=== PATIENT | male | born 1970 | race American Indian/Alaskan Native ===

== ENCOUNTER 2019-08-17 19:03 | Emergency (ER) | payer SELFPAY ==
--- NOTE | 2019-08-17 21:00 | Event Note ---
ED Screening Note Date of service: 08/17/19 Time: 20:54 ED Screening Note: Pt complains of dizziness x 4 days denies HAs, vision changes +DM2 This initial assessment/diagnostic orders/clinical plan/treatment(s) is/are subject to change based on patients health status, clinical progression and re- assessment by fellow clinical providers in the ED. Further treatment and workup at subsequent clinical providers discretion. Patient/guardian urged not to elope from the ED as their condition may be serious if not clinically assessed and managed. Initial orders include: labs EKG
[2019-08-17 21:39] LABS: Basophils # (Auto) 0.1 K/mm3 (0.0-0.1); Basophils % (Auto) 1.2 % (0.0-1.8); Eosinophils # (Auto) 0.1 K/mm3 (0.0-0.4); Eosinophils % (Auto) 2.1 % (0.0-4.3); Hematocrit 39.9 % (35.5-45.6); Hemoglobin 13.4 gm/dl (11.8-15.2); Mean Corpuscular HGB Conc 34 % (32-34); Mean Corpuscular Volume 92 fl (84-94); Monocytes # (Auto) 0.4 K/mm3 (0.0-0.8); Monocytes % (Auto) 7.7 % (0.0-7.3); Red Blood Count 4.32 M/mm3 (3.65-5.03); Red Cell Distribution Width 13.5 % (13.2-15.2)
[2019-08-17 21:52] LABS: Alanine Aminotransferase 10 units/L (7-56); Albumin 4.1 g/dL (3.9-5); BUN/Creatinine Ratio 10; Blood Urea Nitrogen 13 mg/dL (9-20); Calcium 9.4 mg/dL (8.4-10.2); Hemolysis Index 5
[2019-08-17 22:17] LABS: Platelet Count 159 K/mm3 (140-440)
[2019-08-17 22:44] LABS: Bacteria,Urine 1+ /HPF (Negative); Bilirubin,Urine NEG (Negative); Blood,Urine NEG (Negative); Color,Urine Colorless (Yellow); Mucus,Urine FEW /HPF; Protein,Urine <15 mg/dL mg/dL (Negative); Urobilinogen,Urine < 2.0 mg/dL (<2.0); WBC,Urine < 1.0 /HPF (0.0-6.0)
[2019-08-17] MEDS ORDERED: amLODIPine 5 MG TAB PO ONE (23:00)
[2019-08-17] MEDS ORDERED: ASPIRIN 325 MG TAB ONE (23:30)
[2019-08-17] MEDS ORDERED: ASPIRIN 325 MG TAB PO SCH (23:30)
[2019-08-17] MEDS ORDERED: SODIUM CHLORIDE 0.9% 1000 ML 1,000 ML IV ONE (23:33)
[2019-08-17] MEDS ORDERED: MECLIZINE 25 MG TAB PO ONE (23:33)
--- NOTE | 2019-08-18 00:04 | XRay Report ---
CHEST 2 VIEWS INDICATION / CLINICAL INFORMATION: Dizziness. COMPARISON: None available. FINDINGS: Marked tortuosity and ectasia of the thoracic aorta with unwinding of the arch on the lateral view. H eart size is normal. Lungs are clear. No apical capping. No pleural fluid or pneumothorax. No acute s keletal abnormality. Signer Name: Emiliano Krishna MD Signed: 08/17/2019 11:59 PM Workstation Name: [id number]
--- NOTE | 2019-08-18 00:33 | Cat Scan Report ---
Examination: CT of the head without contrast Clinical information: Altered mental status. Dizziness. Comparison: None Technical: Multiple axial CT images of the head were obtained without intravenous contrast. Sagittal and coronal reformats were obtained. All CTs at this facility utilize dose reduction techniques inc luding automated exposure control, iterative reconstruction and weight based dosing when appropriate to reduce patient radiation dose to as low as reasonable achievable. Findings: There is no CT evidence of acute intracranial hemorrhage or large territorial infarct. The ventricular system appears normal in size. No extra-axial fluid collections are identified. Evaluation of the calvarium demonstrates no evidence of acute bony abnormality. The visualized parana cale sinuses and mastoid air cells are clear. Impression: 1. No CT evidence of acute intracranial process. Signer Name: Maxine Sharma MD Signed: 08/18/2019 12:28 AM Workstation Name: [id number]
--- NOTE | 2019-08-18 02:27 | Emergency Department Report ---
ED Dizziness HPI - General Chief Complaint: Dizziness Stated Complaint: DIZZINESS Time Seen by Provider: 08/17/19 20:54 Source: patient Mode of arrival: Ambulatory Limitations: No Limitations - History of Present Illness Initial Comments: Patient is a 48-year-old -Malag[place] male with a history of chronic anxiety who presented to the ED with persistent lightheadedness with elevated blood pressure for 1 week. Patient states that at home his blood pressure is normal but when he comes to the hospitalist blood pressure usually goes a because of "w hitecoat anxiety syndrome". Patient states that he takes lisinopril 10 mg daily for hypertension but that he has not taken his blood pressure medications in 2 days. Patient denies chest pain, shortness of breath, nausea, vomiting, dizziness, cough, traumatic injury, headache, nausea, vomiting, fever, chills, cough, abdominal pain. MD Complaint: lightheadedness, other (elevated BP) -: Sudden, days(s) (2) Timing: intermittent, waxing/waning Description: sense of movement, lightheadedness History of Same: No History of Trauma: No Severity: moderate Improves With: nothing Worsens With: nothing Associated Symptoms: denies other symptoms. denies: ataxia, chest pain, confusion, cough, diaphoresis, fever/chills, loss of appetite, malaise, seizure, shortness of breath, syncope, weakness, other - Related Data Previous Rx's Medication Instructions Recorded Last Taken Type Meclizine [Antivert] 25 mg PO Q8H PRN #30 tablet 08/18/19 Unknown Rx amLODIPine 10 mg PO DAILY #30 tab 08/18/19 Unknown Rx hydrOXYzine PAMOATE [Vistaril] 50 mg PO Q6HR PRN #30 capsule 08/18/19 Unknown Rx Allergies Allergy/AdvReac Type Severity Reaction Status Date / Time No Known Allergies Allergy Verified 08/17/19 23:04 ED Review of Systems ROS: Stated complaint: DIZZINESS Other details as noted in HPI Constitutional: denies: chills, fever Eyes: denies: eye pain, eye discharge, vision change ENT: denies: ear pain, throat pain Respiratory: denies: cough, shortness of breath, wheezing Cardiovascular: denies: chest pain, palpitations Endocrine: no symptoms reported Gastrointestinal: denies: abdominal pain, nausea, diarrhea Genitourinary: denies: urgency, dysuria Musculoskeletal: denies: back pain, joint swelling, arthralgia Skin: denies: rash, lesions Neurological: vertigo, other (lightheadedness). denies: headache, weakness, paresthesias Psychiatric: anxiety. denies: depression Hematological/Lymphatic: denies: easy bleeding, easy bruising ED Past Medical Hx - Past Medical History Previous Medical History?: Yes Hx Diabetes: Yes - Surgical History Past Surgical History?: No - Social History Smoking Status: Never Smoker Substance Use Type: None - Medications Home Medications: Home Medications Medication Instructions Recorded Confirmed Last Taken Type Meclizine [Antivert] 25 mg PO Q8H PRN #30 tablet 08/18/19 Unknown Rx amLODIPine 10 mg PO DAILY #30 tab 08/18/19 Unknown Rx hydrOXYzine PAMOATE [Vistaril] 50 mg PO Q6HR PRN #30 capsule 08/18/19 Unknown Rx ED Physical Exam - General Limitations: No Limitations General appearance: alert, in no apparent distress - Head Head exam: Present: atraumatic, normocephalic - Eye Eye exam: Present: normal appearance, PERRL, EOMI Pupils: Present: normal accommodation - ENT ENT exam: Present: normal exam, normal orophraynx, mucous membranes moist, TM's normal bilaterally, normal external ear exam - Neck Neck exam: Present: normal inspection, full ROM - Respiratory Respiratory exam: Present: normal lung sounds bilaterally. Absent: respiratory distress, wheezes, chest wall tenderness, accessory muscle use, decreased breath sounds - Cardiovascular Cardiovascular Exam: Present: normal rhythm, tachycardia, normal heart sounds. Absent: systolic murmur, diastolic murmur, rubs, gallop - GI/Abdominal GI/Abdominal exam: Present: soft, normal bowel sounds. Absent: tenderness, guarding, hyperactive bowel sounds, hypoactive bowel sounds - Extremities Exam Extremities exam: Present: normal inspection, full ROM, normal capillary refill - Back Exam Back exam: Present: normal inspection, full ROM. Absent: tenderness, muscle spasm, vertebral tenderness - Neurological Exam Neurological exam: Present: alert, oriented X3, CN II-XII intact, normal gait, reflexes normal - Psychiatric Psychiatric exam: Present: normal affect, normal mood, anxious - Skin Skin exam: Present: warm, dry, intact, normal color. Absent: rash ED Course Vital Signs 0108/17/19 08/17/19 19:31 20:54 21:02 Temperature 98.5 F 98.5 F Pulse Rate 107 H 108 H Respiratory 18 18 Rate Blood Pressure 211/139 211/139 Blood Pressure 184/109 [Right] O2 Sat by Pulse 98 98 Oximetry 08/17/19 23:30 Temperature Pulse Rate 122 H Respiratory Rate Blood Pressure 204/126 Blood Pressure [Right] O2 Sat by Pulse Oximetry ED Medical Decision Making - Lab Data Result diagrams: 08/17/19 21:23 08/17/19 21:23 - EKG Data EKG shows normal: sinus rhythm Rate: normal - EKG Data Interpretation: normal EKG 08/18/19 02:33 EKG shows normal sinus rhythm with ventricular rate of 95 beats a minute, no ST or T-wave abnormalities. - Radiology Data Radiology results: report reviewed, image reviewed Chest x-ray shows no acute cardiopulmonary normalities or pneumonitis. Head CT scan without contrast shows no acute intracranial abnormalities or hemorrhage. - Medical Decision Making This is a 48-year-old -Malag[place] male with a history of chronic anxiety who presented to the ED with persistent lightheadedness with elevated blood pressure for 1 week. Patient states that at home his blood pressure is normal but when he comes to the hospitalist blood pressure usually goes a because of "whitecoat anxiety syndrome". In the ED, patient is alert and oriented 3 and is not in distress but significantly anxious, with elevated hypertension and tachycardia in triage. Patient was treated with Norvasc 10 mg by mouth 1, and also given aspirin in the ED. EKG shows normal sinus rhythm with a ventricular rate of [address] or T-wave abnormalities. Chest x-ray shows no acute cardiopulmonary abnormalities or pneumonitis. Head CT scan without contrast shows no acute intracranial abnormalities or hemorrhage. Lab test results were reviewed and are all nonactionable except for acute hyperglycemia of 175 milligrams per deciliter. The rest of the lab test results are nonactionable including initial and repeat troponins. On reevaluation, patient felt better, fell asleep in the room and tachycardia improved. Patient was not treated for that in the ED because he had driven himself to the ED and was expected to drive home. Patient was however discharged home on medications including additional blood pressure medicine and antiemetic medication. Patient was advised to follow-up with his primary care physician in 5-7 days for reevaluation or return to the ED immediately if symptoms get worse. - Differential Diagnosis Uncontrolled HTN; Vertigo; ACS; Lightheadedness Critical care attestation.: If time is entered above; I have spent that time in minutes in the direct care of this critically ill patient, excluding procedure time. ED Disposition Clinical Impression: Intermittent lightheadedness, Uncontrolled stage 2 hypertension, Vertigo Disposition: TO HOME OR SELFCARE Is pt being admited?: No Does the pt Need Aspirin: No Condition: Stable Instructions: Generalized Anxiety Disorder (ED), Chronic Hypertension (ED), Hypertension (ED), Lightheadedness (ED) Additional Instructions: Take your regular medications for hypertension, drink plenty of fluids and follow-up with your primary care physician in 5-7 days for reevaluation. Return to the ED immediately if symptoms get worse. Prescriptions: amLODIPine 10 mg PO DAILY #30 tab Meclizine [Antivert] 25 mg PO Q8H PRN #30 tablet PRN Reason: Vertigo hydrOXYzine PAMOATE [Vistaril] 50 mg PO Q6HR PRN #30 capsule PRN Reason: Anxiety Referrals: NORRIS MCKEON MD [Staff Physician] - 7-10 days Time of Disposition: 02:30 Print Language: CAPE VERDEAN
[2019-08-18 06:35] VITALS: BP 182/99
== END 2019-08-18 03:17 | disposition home or self-care (01) ==
LOC: ED 19:03
DX: R42 Dizziness and giddiness (principal); I10 Essential (primary) hypertension; E11.9 Type 2 diabetes mellitus without complications; Z79.899 Other long term (current) drug therapy
CPT/HCPCS: 36415; 70450; 71046; 80053; 81001; 84484; 85025; 93005; 93010; 96360; 99285; J7030

== ENCOUNTER 2019-12-25 12:25 | Emergency (ER) | payer SELFPAY ==
--- NOTE | 2019-12-25 14:30 | Emergency Department Report ---
ED General Adult HPI - General Chief complaint: Skin/Abscess/Foreign Body Stated complaint: RT FOOT FOREIGN OBJECT/PAIN PUI?: No Time Seen by Provider: 12/25/19 13:49 Source: patient Mode of arrival: Ambulatory Limitations: No Limitations - History of Present Illness Initial comments: This is a 48-year-old male presents the ED complaining of right foot pain times a couple of days. Patient states that about a month ago he was in his home and felt something prick his foot. Patient states over time he got object after falling out of his foot onto recently whenever he steps on that part of the foot he feels a sharp puncture pain like something is inside. Patient states that it felt like a small glass object initially when it happened. Patient states he started to try to take out an object but unsure if she did or not. He denies any redness or swelling to the area. He denies any fever, chills, nausea vomiting or diarrhea. States over the vaccinations are up-to-date - Related Data Previous Rx's Medication Instructions Recorded Last Taken Type Meclizine [Antivert] 25 mg PO Q8H PRN #30 tablet 08/18/19 Unknown Rx amLODIPine 10 mg PO DAILY #30 tab 08/18/19 Unknown Rx hydrOXYzine PAMOATE [Vistaril] 50 mg PO Q6HR PRN #30 capsule 08/18/19 Unknown Rx lisinopriL [Zestril TAB] 20 mg PO QDAY #40 tablet 12/25/19 Unknown Rx Allergies Allergy/AdvReac Type Severity Reaction Status Date / Time No Known Allergies Allergy Verified 12/25/19 12:26 ED Review of Systems ROS: Stated complaint: RT FOOT FOREIGN OBJECT/PAIN Other details as noted in HPI Comment: All other systems reviewed and negative ED Past Medical Hx - Past Medical History Hx Diabetes: Yes - Surgical History Past Surgical History?: No - Social History Smoking Status: Never Smoker Substance Use Type: Alcohol - Medications Home Medications: Home Medications Medication Instructions Recorded Confirmed Last Taken Type Meclizine [Antivert] 25 mg PO Q8H PRN #30 tablet 08/18/19 Unknown Rx amLODIPine 10 mg PO DAILY #30 tab 08/18/19 Unknown Rx hydrOXYzine PAMOATE [Vistaril] 50 mg PO Q6HR PRN #30 capsule 08/18/19 Unknown Rx lisinopriL [Zestril TAB] 20 mg PO QDAY #40 tablet 12/25/19 Unknown Rx ED Physical Exam - General Limitations: No Limitations General appearance: alert, in no apparent distress - Head Head exam: Present: atraumatic, normocephalic - Eye Eye exam: Present: normal appearance - ENT ENT exam: Present: mucous membranes moist - Neck Neck exam: Present: normal inspection - Respiratory Respiratory exam: Present: normal lung sounds bilaterally. Absent: respiratory distress - Cardiovascular Cardiovascular Exam: Present: regular rate, normal rhythm. Absent: systolic murmur, diastolic murmur, rubs, gallop - GI/Abdominal GI/Abdominal exam: Present: soft, normal bowel sounds - Rectal Rectal exam: Present: deferred - Extremities Exam Extremities exam: Present: normal inspection, tenderness (To palpation of the puncture wound), other (Small puncture wound to the right lateral aspect of the bottom of the foot. Tender to palpation) - Back Exam Back exam: Present: normal inspection - Neurological Exam Neurological exam: Present: alert, oriented X3, normal gait - Psychiatric Psychiatric exam: Present: normal affect, normal mood - Skin Skin exam: Present: warm, dry, intact, normal color. Absent: rash ED Course Vital Signs 12/25/19 12:26 Temperature 98.3 F Pulse Rate 120 H Respiratory 20 Rate O2 Sat by Pulse 99 Oximetry ED Medical Decision Making - Medical Decision Making 48-year-old male presents with a very superficial puncture wound most likely a small piece of glass unknown to him for the past month Puncture was opened with 11 blade slightly and pickups used to debride the skin in that area. There was no foreign body seen. Patient has a history of hypertension stating that he only has 3 pills left and wanted to refill on his lisinopril prescription. Refill prescription given to patient. Patient is in no acute distress. Discussed with patient that foreign object such as small piece of glass most likely will fall off. Upon palp area over puncture wound does now feeling a foreign object on the foot. Discussed with patient to follow-up with the primary care physician Vital signs are normal patient is in no acute distress. Critical care attestation.: If time is entered above; I have spent that time in minutes in the direct care of this critically ill patient, excluding procedure time. ED Disposition Clinical Impression: Puncture wound of foot with foreign body Disposition: TO HOME OR SELFCARE Is pt being admited?: No Does the pt Need Aspirin: No Condition: Stable Instructions: Puncture Wound (ED), Acute Wound Care (ED) Additional Instructions: Make sure to follow up with the primary care physician as discussed. Take all your medications as you've been prescribed. If you have any worsening symptoms or develop new symptoms please return to ED immediately. Prescriptions: lisinopriL [Zestril TAB] 20 mg PO QDAY #40 tablet Referrals: PRIMARY CARE, [Primary Care Provider] - 3-5 Days [facility] [Outside] - 3-5 Days [facility] [Outside] - 3-5 Days Forms: Work/School Release Form(ED)
== END 2019-12-25 15:30 | disposition home or self-care (01) ==
LOC: ED 12:25
DX: S91.331A Puncture wound without foreign body, right foot, initial encounter (principal); E11.9 Type 2 diabetes mellitus without complications; Z79.899 Other long term (current) drug therapy; X58.XXXA Exposure to other specified factors, initial encounter; Y93.89 Activity, other specified; Y92.89 Other specified places as the place of occurrence of the external cause; Y99.8 Other external cause status
CPT/HCPCS: 99282